=== PATIENT | male | born 1980 | race Caucasian/White ===

== ENCOUNTER 2016-12-31 18:19 | Emergency (ER) | payer BC, OTHER ==
[~2016-12-31] VITALS: Ht 182.9 cm; Wt 81.8 kg
[2016-12-31] MEDS ORDERED: IBUPROFEN 800 MG TAB PO ONE (20:45)
--- NOTE | 2016-12-31 22:10 | REPUSA ---
HISTORY: PAIN AND SWELLING S/P TICK BITE. Scrotal pain. TECHNIQUE: Scrotal ultrasound examination with color flow Doppler imaging. FINDINGS: Right testis measures 4.4 x 2.5 x 2.8 cm with normal blood flow and no pathologic mass seen . Right epididymis is normal. Small right hydrocele is noted. Left testis measures 4.4 x 2.2 x 2.9 cm with normal blood flow with no pathologic mass seen. Left ep ididymis is normal. Left hydrocele is noted. IMPRESSION: 1. No evidence of testicular mass lesion or torsion. 2. Bilateral hydroceles. No other pathologic scrotal mass lesions are seen.
[2016-12-31 22:31] VITALS: BP 130/69
== END 2016-12-31 22:40 | disposition home or self-care (01) ==
LOC: M ED 18:19
DX: N50.819 Testicular pain, unspecified (principal); N43.3 Hydrocele, unspecified; F17.200 Nicotine dependence, unspecified, uncomplicated

== ENCOUNTER 2018-10-10 03:49 | Emergency (ER) | payer OTHER ==
[~2018-10-10] VITALS: Ht 185.4 cm; Wt 95.0 kg
[2018-10-10 03:49] VITALS: BP 129/80
[2018-10-10] MEDS ORDERED: FLUORESCEIN OPHTH 1 MG STRIP XX ONE (07:30)
[2018-10-10] MEDS ORDERED: PROPARACAINE 0.5% OPHTH SOL 15ML XX ONE (07:30)
[2018-10-10] MEDS ORDERED: OCUF0.25 OP (09:26)
== END 2018-10-10 09:33 | disposition home or self-care (01) ==
LOC: M ED 03:49
DX: S05.01XA Injury of conjunctiva and corneal abrasion without foreign body, right eye, initial encounter (principal); W54.1XXA Struck by dog, initial encounter; Y92.098 Other place in other non-institutional residence as the place of occurrence of the external cause

== ENCOUNTER → 2020-03-17 | Outpatient (REF) | payer BC ==
[~2020-03-17] MED LIST: OCUF0.25 OP
== END ==
LOC: M LAB REF 16:29
PROVIDERS: ATTEND Physician Assistant Medical
DX: Z20.828 Contact with and (suspected) exposure to other viral communicable diseases (principal)

== ENCOUNTER 2022-03-11 21:36 | Emergency (ER) | payer BC ==
[~2022-03-11] VITALS: Ht 185.4 cm; Wt 95.5 kg
[2022-03-11] MEDS ORDERED: ISOVUE-370 76% 100ML VIAL As Ordered ONE (22:26)
[2022-03-11 22:40] LABS: BASO % 0.6 % (0.0-1.0); EOS # 0.4 10^3/uL (0.0-0.5); EOS % 5.8 % (0.0-3.0); HEMATOCRIT 41.6 % (42.0-52.0); HEMOGLOBIN 14.1 g/dl (13.5-17.5); LYMPH # 1.6 10^3/uL (1.5-5.0); LYMPH % 24.2 % (24.0-44.0); MEAN CORPUSCULAR HEMOGLOBIN 31.5 pg (27.0-33.0); MEAN CORPUSCULAR HGB CONC 33.9 g/dl (32.0-36.5); MEAN CORPUSCULAR VOLUME 93.1 fl (80.0-96.0); MONO # 0.8 10^3/uL (0.0-0.8); NEUTROPHILS # 3.7 10^3/uL (1.5-8.5); NEUTROPHILS % 57.1 % (36.0-66.0); PLATELET COUNT, AUTOMATED 264 10^3/uL (150-450); RED BLOOD COUNT 4.47 10^6/uL (4.30-6.10); WHITE BLOOD COUNT 6.4 10^3/uL (4.0-10.0)
[2022-03-11 22:46] LABS: CK-MB VALUE MASS < 1.0 NG/ML (<3.6)
[2022-03-11 22:48] LABS: CPK CREATINE PHOSPHOKINASE 229 U/L (46-171); MB/CK RELATIVE INDEX 0.43 (< OR =4)
[2022-03-12] MEDS ORDERED: CYCL5TAB PO (00:20)
[2022-03-12 00:30] VITALS: BP 137/86
[2022-03-12] MEDS ORDERED: CYCLOBENZAPRINE 5MG TABLET PO ONE (00:30)
== END 2022-03-12 00:41 | disposition home or self-care (01) ==
LOC: M ED 21:36
DX: R20.2 Paresthesia of skin (principal); F10.10 Alcohol abuse, uncomplicated; Z79.899 Other long term (current) drug therapy

== ENCOUNTER → 2023-08-01 | Outpatient (CLI) | payer BC ==
[~2023-08-01] MED LIST changes: +CYCL5TAB PO; +ISOVUE-370 76% 100ML VIAL ONE
== END ==
LOC: M PLAIMG 07:34
PROVIDERS: ATTEND Otolaryngology
DX: M54.2 Cervicalgia (principal); R59.9 Enlarged lymph nodes, unspecified
CPT/HCPCS: 70491; Q9967

== ENCOUNTER → 2024-01-26 | Outpatient (CLI) | payer BC ==
[~2024-01-26] MED LIST changes: -CYCL5TAB PO; +CYCL5TAB4 PO; -ISOVUE-370 76% 100ML VIAL ONE
== END ==
LOC: M RAD 15:05
PROVIDERS: ATTEND Otolaryngology
DX: M50.20 Other cervical disc displacement, unspecified cervical region (principal)

== ENCOUNTER → 2024-10-24 | Outpatient (CLI) | payer BC ==
[2024-10-24 12:35] VITALS: TEMP 98.2
[2024-10-24] MEDS: LIDOCAINE 1% MDV 20 ML VIAL SC STA (12:50)
[2024-10-24 13:10] VITALS: BP 136/84; O2SAT 96
== END ==
LOC: M IRPRO 12:15
PROVIDERS: ATTEND Otolaryngology
DX: R22.1 Localized swelling, mass and lump, neck (principal)

== ENCOUNTER → 2024-12-24 | Outpatient (CLI) | payer BC | LOC: M SLEEP HO 10:45 | PROVIDERS: ATTEND Physician Assistant | DX: R40.0 Somnolence (principal) ==

== ENCOUNTER → 2025-02-11 | Outpatient (CLI) | payer BC ==
[~2025-02-11] MED LIST changes: +FISH OIL PO; +FOLTTAB9 PO; +THERTAB52 PO; +magnesium
== END ==
LOC: M PLARAD 11:52
PROVIDERS: ATTEND Student in an Organized Health Care Education/Training Program
DX: R59.0 Localized enlarged lymph nodes (principal)
CPT/HCPCS: 78815; A9552

== ENCOUNTER → 2025-02-17 | Outpatient (CLI) | payer BC | LOC: M SLEEP 20:00 | PROVIDERS: ATTEND Physician Assistant | DX: G47.33 Obstructive sleep apnea (adult) (pediatric) (principal) ==